=== PATIENT | female | born 1985 ===

== ENCOUNTER 2021-08-14 09:43 | Emergency (ER) | payer SELFPAY ==
[2021-08-14] MEDS ORDERED: KETOROLAC 30 MG/1 ML INJ IV ONE (11:42)
[2021-08-14] MEDS ORDERED: SODIUM CHLORIDE 0.9% 500 ML 500 ML IV ONE (11:43)
[2021-08-14 11:53] LABS: Basophils % (Auto) 0.2 % (0.0-1.8); Eosinophils # (Auto) 0.1 K/mm3 (0.0-0.4); Eosinophils % (Auto) 1.2 % (0.0-4.3); Hematocrit 39.5 % (30.3-42.9); Hemoglobin 13.2 gm/dl (10.1-14.3); Lymphocytes # (Auto) 2.3 K/mm3 (1.2-5.4); Lymphocytes % (Auto) 27.1 % (13.4-35.0); Mean Corpuscular HGB Conc 33 % (30-34); Mean Corpuscular Volume 85 fl (79-97); Monocytes # (Auto) 0.6 K/mm3 (0.0-0.8); Monocytes % (Auto) 7.2 % (0.0-7.3); Platelet Count 274 K/mm3 (140-440); Red Blood Count 4.67 M/mm3 (3.65-5.03)
[2021-08-14 12:00] LABS: INR 0.82 (0.87-1.13)
[2021-08-14 12:28] LABS: Blood Urea Nitrogen 8 mg/dL (7-17); Calcium 9.1 mg/dL (8.4-10.2); Hemolysis Index 3
[2021-08-14 12:32] LABS: BUN/Creatinine Ratio 27
--- NOTE | 2021-08-14 12:35 | Emergency Department Report ---
ED Chest Pain HPI - General Chief Complaint: Anxiety Stated Complaint: HYPERVENTILATION PUI?: No Time Seen by Provider: 08/14/21 11:40 Source: patient, EMS Mode of arrival: Stretcher Limitations: Language Barrier - History of Present Illness Initial Comments: The patient states the symptoms started at 730 when she arrived to work. Patient states she felt strong left-sided chest pain that radiated to her shoulder and mid back and was associated with nausea and generalized body weakness but denied focal weakness. Patient claims later developed a frontal headache and generalized body weakness. Associated symptoms also included shortness of breath and feeling anxious. Patient otherwise reports history of [id number]-svevystys diabetes, hyperlipidemia and obesity. According to coworker patient also was witnessed having a brief syncopal episode. MD Complaint: chest pain -: Gradual, hour(s) Onset: during rest Pain Radiation: back, neck Severity: moderate Severity scale (0 -10): 5 Quality: tightness, aching, pressure Consistency: constant Improves With: nothing Worsens With: nothing re: nausea, dyspnea Other Symptoms: syncope. denies: leg swelling Treatments Prior to Arrival: none Aspirin use within the Past 7 Days: (0) No - Related Data Allergies Allergy/AdvReac Type Severity Reaction Status Date / Time prednisone Allergy Intermediate Dizziness Verified 08/14/21 10:00 ED Review of Systems ROS: Stated complaint: HYPERVENTILATION Other details as noted in HPI Constitutional: denies: chills, fever Eyes: denies: eye pain, eye discharge, vision change ENT: denies: ear pain, throat pain Respiratory: shortness of breath, SOB at rest. denies: cough, wheezing Cardiovascular: chest pain, palpitations, syncope Endocrine: no symptoms reported Gastrointestinal: denies: abdominal pain, nausea, diarrhea Genitourinary: denies: urgency, dysuria, discharge Musculoskeletal: denies: back pain, joint swelling, arthralgia Skin: denies: rash, lesions Neurological: denies: headache, weakness, paresthesias Psychiatric: denies: anxiety, depression Hematological/Lymphatic: denies: easy bleeding, easy bruising ED Past Medical Hx - Past Medical History Previous Medical History?: Yes Hx Diabetes: Yes Additional medical history: High Cholesterol - Surgical History Past Surgical History?: Yes Additional Surgical History: - Social History Smoking Status: Never Smoker ED Physical Exam - General Limitations: Language Barrier General appearance: alert, in no apparent distress - Head Head exam: Present: atraumatic, normocephalic - Eye Eye exam: Present: normal appearance - ENT ENT exam: Present: mucous membranes moist - Neck Neck exam: Present: normal inspection - Respiratory Respiratory exam: Present: normal lung sounds bilaterally. Absent: respiratory distress - Cardiovascular Cardiovascular Exam: Present: regular rate, normal rhythm. Absent: systolic murmur, diastolic murmur, rubs, gallop - GI/Abdominal GI/Abdominal exam: Present: soft, normal bowel sounds - Extremities Exam Extremities exam: Present: normal inspection - Back Exam Back exam: Present: normal inspection - Neurological Exam Neurological exam: Present: alert, oriented X3 - Psychiatric Psychiatric exam: Present: normal affect, normal mood - Skin Skin exam: Present: warm, dry, intact, normal color. Absent: rash - Other Other exam information: The patient is alert oriented x3, still complaining of mild left-sided chest pain but denies any focal weakness at this time. The NIH at this time is 0. ED Course Vital Signs 08/14/21 08/14/21 08/14/21 09:48 10:02 10:06 Temperature 98.1 F 97.5 F L Pulse Rate 73 70 Respiratory 38 H 42 H 26 H Rate Blood Pressure Blood Pressure 145/106 109/65 [Left] O2 Sat by Pulse 100 99 Oximetry 08/14/21 10:09 Temperature Pulse Rate 84 Respiratory 26 H Rate Blood Pressure 109/65 Blood Pressure [Left] O2 Sat by Pulse 99 Oximetry ED Medical Decision Making - Lab Data Result diagrams: 08/14/21 11:14 08/14/21 11:10 - EKG Data EKG shows normal: sinus rhythm Rate: normal - EKG Data Interpretation: nonspecific ST-T wave brandy 08/14/21 13:19 Nonspecific changes of the inferior leads, ischemia versus chronic changes. Critical care attestation.: If time is entered above; I have spent that time in minutes in the direct care of this critically ill patient, excluding procedure time. ED Disposition Condition: Stable Referrals: PRIMARY CARE, [Primary Care Provider] - 3-5 Days
--- NOTE | 2021-08-14 13:03 | XRay Report ---
CHEST 1 VIEW 08/14/2021 11:45 AM INDICATION / CLINICAL INFORMATION: sob. COMPARISON: None available. FINDINGS: SUPPORT DEVICES: None. HEART / MEDIASTINUM: No significant abnormality. LUNGS / PLEURA: Increased bilateral perihilar opacity/increased vascularity No pneumothorax. ADDITIONAL FINDINGS: No significant additional findings. IMPRESSION: 1. Increased pulmonary vascularity with perihilar prominence bilaterally. Signer Name: Fabiano Del Cid MD Signed: 08/14/2021 12:58 PM Workstation Name: [id number]
--- NOTE | 2021-08-14 15:10 | Nuclear Medicine Report ---
NUCLEAR MEDICINE PERFUSION SCAN INDICATION: elevated d-dimer and chest pain CORRELATION: AP chest performed the same day RADIOPHARMACEUTICAL: Perfusion: 5.1 mCi Tc-99m MAA given IV FINDINGS: Perfusion images show symmetric and uniform radiotracer distribution throughout bilateral lung zones with no evidence of unmatched segmental perfusion defects. Normal cardiac silhouette. IMPRESSION: Low probability perfusion scan for pulmonary embolism. Signer Name: Kyle Chatman Jr, MD Signed: 08/14/2021 3:05 PM Workstation Name: [id number]
--- NOTE | 2021-08-14 15:28 | Cat Scan Report ---
CT HEAD WITHOUT CONTRAST INDICATION / CLINICAL INFORMATION: headache. TECHNIQUE: All CT scans at this location are performed using CT dose reduction for ALARA by means of automated exposure control. COMPARISON: None available. FINDINGS: HEMORRHAGE: None. EXTRA-AXIAL SPACES: Normal in size and morphology for the patient's age. VENTRICULAR SYSTEM: Normal in size and morphology for the patient's age. CEREBRAL PARENCHYMA: No significant abnormality. No acute territorial infarct. MIDLINE SHIFT / HERNIATION: None. CEREBELLUM / BRAINSTEM: No significant abnormality. ORBITS: Normal as visualized. SOFT TISSUES: No significant abnormality. SKULL: No significant abnormality. PARANASAL SINUSES / MASTOID AIR CELLS: Mucous retention cyst in the inferior left maxillary sinus. ADDITIONAL FINDINGS: None. IMPRESSION: 1. No acute intracranial abnormality. Signer Name: Lynette Barajas MD Signed: 08/14/2021 3:23 PM Workstation Name: [id number]
--- NOTE | 2021-08-14 15:34 | Cat Scan Report ---
CT chest without contrast INDICATION : chest pain and sob. TECHNIQUE: Axial imaging performed through the chest without the use of intravenous contrast. All C T scans at this location are performed using CT dose reduction for ALARA by means of automated exposu re control. COMPARISON: None FINDINGS: The heart and great vessels appear unremarkable. No pathologic mediastinal adenopathy. Lungs are clear. Limited imaging of the upper abdomen shows nothing acute. There are mild degenerative changes in the spine with nothing acute. IMPRESSION: No acute abnormality. Clear lungs. Signer Name: Justin Jaramillo MD Signed: 08/14/2021 3:29 PM Workstation Name: [id number]
[2021-08-14 17:32] VITALS: BP 109/46
--- NOTE | 2021-08-15 10:49 | Consultation ---
History of Present Illness - Reason for Consult Consult date: 08/14/21 chest pain Requesting physician: SAGE COOL - History of Present Illness 36 YO Female with ELIAN, Obesity presents to ED for evaluation. Patient reports " I feel anxious". Patient states that she experienced chest discomfort, nausea, and generalized weakness, shortness of breath, and feeling of impending doom shortly after arriving at work. Patient knowledges multiple work stressors as well as multiple stressors at home. EMS was notified and upon arrival the patient was evaluated and transported to [facility] for further care and evaluation of the aforementioned symptoms. The patient was seen and evaluated in the emergency department. All lab and imaging studies reviewed. Patient underwent serial cardiac enzyme and EKG monitoring which was negative for acute ischemia. Patient found to have clinical symptoms consistent with generalized anxiety disorder. Patient denies anxiolytic therapy at this time. Patient treated with benzodiazepine therapy with improvement in symptoms. Patient medically optimized and back to usual state of health. Patient discharged home instructed to follow-up with primary care physician in 3 to 5 days for age-appropriate screening test. Patient also instructed to follow-up with psychiatry as outpatient. Past History Past Medical History: diabetes, hyperlipidemia, other (See HPI) Past Surgical History: Social history: single. denies: smoking, alcohol abuse, prescription drug abuse Family history: diabetes, hypertension Medications and Allergies Allergies Allergy/AdvReac Type Severity Reaction Status Date / Time prednisone Allergy Intermediate Dizziness Verified 08/14/21 10:00 Home Medications Medication Instructions Recorded Confirmed Last Taken Type ALPRAZolam [Xanax TAB] 0.25 mg PO BID PRN #26 tab 08/14/21 Unknown Rx Review of Systems Constitutional: no weight loss, no fever Ears, nose, mouth and throat: no tinnitis, no nasal congestion, no nasal discharge Breasts: no change in shape, no swelling, no mass Cardiovascular: no orthopnea, no palpitations, no edema, no syncope Respiratory: no cough, no cough with sputum, no excessive sputum, no hemoptysis Gastrointestinal: nausea, no abdominal pain, no vomiting, no change in bowel habits Genitourinary Female: no flank pain, no menorrhagia, no dysuria, no urinary frequency, no urgency Rectal: no pain, no incontinence, no bleeding Musculoskeletal: no neck stiffness, no neck pain, no shooting arm pain, no low back pain, no shooting leg pain Integumentary: no rash, no pruritis, no redness, no wounds, no jaundice Neurological: no head injury, no transient paralysis, no weakness, no numbness, no seizures, no syncope Psychiatric: anxiety, anxiety attacks, difficulties concentrating, no depression, no hopelessness, no anhedonia Endocrine: no cold intolerance, no heat intolerance, no polydipsia Hematologic/Lymphatic: no easy bruising, no easy bleeding, no lymphadenopathy Allergic/Immunologic: no allergic rhinitis, no wheezing, no persistent infections, no anaphylaxis, no angioedema Exam - Constitutional Vitals: Temp Pulse Resp BP Pulse Ox 97.5 F L 64 15 109/46 99 08/14/21 10:06 08/14/21 17:31 08/14/21 17:31 08/14/21 17:31 08/14/21 17:31 General appearance: Present: no acute distress, obese - EENT Eyes: Present: PERRL ENT: hearing intact, clear oral mucosa - Neck Neck: Present: supple, normal ROM - Respiratory Respiratory effort: normal Respiratory: bilateral: CTA - Cardiovascular Heart Sounds: Present: S1 & S2. Absent: rub, click - Extremities Extremities: pulses symmetrical, No edema Peripheral Pulses: within normal limits - Abdominal General gastrointestinal: Present: soft, non-tender, non-distended, normal bowel sounds Female genitourinary: Present: normal - Integumentary Integumentary: Present: clear, warm, dry - Musculoskeletal Musculoskeletal: gait normal, strength equal bilaterally - Psychiatric Psychiatric: appropriate mood/affect, intact judgment & insight - Neurologic Neurologic: CNII-XII intact, moves all extremities Results - Labs CBC & Chem 7: 08/14/21 11:14 08/14/21 11:10 Labs: Abnormal lab results 08/14/21 08/14/21 08/14/21 Range/Units 11:10 11:14 11:14 RDW 13.0 L (13.2-15.2) % INR 0.82 L (0.87-1.13) D-Dimer > 37641 H (0-234) ng/mlDDU Creatinine 0.3 L (0.6-1.2) mg/dL Assessment and Plan - Patient Problems (1) ELIAN (generalized anxiety disorder) Status: Acute Plan to address problem: Xanax twice daily, outpatient psychiatry follow-up, outpatient cognitive behavioral therapy. (2) Obesity Status: Acute Plan to address problem: Balanced diet, increase physical activity at discharge. Outpatient pulmonary follow-up for sleep study. (3) Preventative health care Status: Acute Plan to address problem: Patient counseled regarding increase physical activity, balanced diet, meal planning, +15 minutes.
--- NOTE | 2021-08-15 17:10 | Electrocardiograph Report ---
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
== END 2021-08-14 19:13 | disposition admitted as inpatient to this hospital (09) ==
LOC: ED 09:43
DX: R11.0 Nausea (principal); R07.9 Chest pain, unspecified; M54.50 Low back pain, unspecified; R53.1 Weakness; Z91.09 Other allergy status, other than to drugs and biological substances
CPT/HCPCS: 36415; 70450; 71045; 71250; 78580; 80048; 83880; 84484; 84703; 85025; 85379; 85610; 93005; 96374; 99285; A9540; J1885; J7040